=== PATIENT | male | born 1960 | race Hispanic/Latino ===

== ENCOUNTER 2017-02-24 10:36 | Outpatient (CLI) | payer MEDICARE ==
--- NOTE | 2017-02-24 11:51 | XRay Report ---
Left tibia-fibula 2 views: History: Fracture. Findings: There is no evidence of acute fracture diaphysis left tibia and fibula. No soft tissue calcification. Impression: No evidence of acute fracture.
--- NOTE | 2017-02-24 11:52 | XRay Report ---
Left hip 2 views: History: Fracture left femur and tibia and fibula. Findings: Mild arthritic changes in the superior-lateral aspect of hip joint. No evidence of acute fracture or dislocation. Focal areas of ossification adjacent to the greater trochanter probably related to old injury. Impression: No acute findings.
--- NOTE | 2017-02-24 11:55 | XRay Report ---
Left femur 2 views: History: Fracture left femur and tibia-fibula. Findings: There is old healed fracture noted mid-diaphysis of left femur with thickening of the cortex. No evidence of acute fracture. No significant soft tissue calcification. Impression: Old healed fracture diaphysis left femur.
== END 2017-02-24 10:37 | disposition home or self-care (01) ==
LOC: XRAY 10:36
PROVIDERS: ATTEND Family Medicine
DX: S72.8X2D Other fracture of left femur, subsequent encounter for closed fracture with routine healing (principal); M16.12 Unilateral primary osteoarthritis, left hip; F17.200 Nicotine dependence, unspecified, uncomplicated; X58.XXXD Exposure to other specified factors, subsequent encounter

== ENCOUNTER 2019-02-18 19:23 | Emergency (ER) | payer MEDICARE ==
[2019-02-18] MEDS ORDERED: ZOFRAN IV ONE ×2 (20:31→21:40)
[2019-02-18] MEDS ORDERED: SUBLIMAZE IV ONE ×2 (20:31→21:40)
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
--- NOTE | 2019-02-18 21:37 | Cat Scan Report ---
CT CERVICAL SPINE WITHOUT CONTRAST INDICATION: pain after fall down stairs. TECHNIQUE: All CT scans at this location are performed using CT dose reduction for ALARA by means of automated e xposure control. Axial CT images were obtained through the cervical spine. Sagittal and coronal reformatted images we re produced. COMPARISON: None available. FINDINGS: Fracture: None. Subluxation: None. Spinal canal: No significant compromise. Disc spaces: Moderate discogenic degenerative disease C3-4 C6-7. Facet joints: Moderate facet degenerative disease C4-5. Paraspinal soft tissues: No soft tissue swelling. Normal. Additional findings: None. Lung apices: Normal. IMPRESSION: 1. No fracture of cervical spine. 2. Moderate discogenic and facet degenerative disease. Signer Name: Musa Garcia MD Signed: 02/18/2019 9:33 PM Workstation Name: [id number]
--- NOTE | 2019-02-18 21:41 | Cat Scan Report ---
CT head/brain wo con INDICATION: pain after fall down stairs. TECHNIQUE: All CT scans at this location are performed using the following dose modulation technique: Automated exposure control. COMPARISON: None available. FINDINGS: There is no hemorrhage, abnormal extra-axial fluid collection, midline shift or mass effect. The vent ricles, cisterns and sulci are normal in size and configuration. Visualized paranasal sinuses and mas toid air cells are well-aerated. There is no fracture of the calvarium or scalp hematoma IMPRESSION: 1. No intracranial bleed. Signer Name: Musa Garcia MD Signed: 02/18/2019 9:37 PM Workstation Name: [id number]
--- NOTE | 2019-02-18 22:12 | XRay Report ---
SACRUM AND COCCYX 3 VIEWS INDICATION / CLINICAL INFORMATION: pain after fall down stairs. COMPARISON: None available. FINDINGS: No fracture or dislocation is seen within the sacrum or coccyx. Both SI joints appear intact. Signer Name: Musa Garcia MD Signed: 02/18/2019 10:08 PM Workstation Name: [id number]
--- NOTE | 2019-02-18 22:15 | XRay Report ---
LEFT KNEE 3 VIEWS INDICATION / CLINICAL INFORMATION: pain after fall down stairs. COMPARISON: None FINDINGS: Haroon are seen within the medial and lateral proximal tibia from previous fracture ORIF. No acute f racture, dislocation or left knee effusion is present. Moderate chondrocalcinosis is seen within both menisci with moderate degenerative arthrosis of medial femoral tibial compartment and mild degenerat [place] arthrosis of patellofemoral and lateral femoral tibial compartments on these nonweightbearing vie ws. Signer Name: Musa Garcia MD Signed: 02/18/2019 10:10 PM Workstation Name: [id number]
--- NOTE | 2019-02-18 22:19 | XRay Report ---
LUMBAR SPINE 3 VIEWS INDICATION / CLINICAL INFORMATION: pain after fall down stairs. COMPARISON: None available. FINDINGS: VERTEBRAE: No fracture. No significant malalignment. DISC SPACES:Moderate discogenic degenerative disease L4-5. Mild discogenic degenerative disease L3-4. FACET JOINTS:Moderate facet degenerative disease L5-S1 ADDITIONAL FINDINGS: None. Signer Name: Musa Garcia MD Signed: 02/18/2019 10:14 PM Workstation Name: [id number]
[2019-02-18 23:04] VITALS: BP 115/78
== END 2019-02-18 22:55 | disposition home or self-care (01) ==
LOC: ED 19:23
DX: S16.1XXA Strain of muscle, fascia and tendon at neck level, initial encounter (principal); S39.012A Strain of muscle, fascia and tendon of lower back, initial encounter; S30.0XXA Contusion of lower back and pelvis, initial encounter; S09.90XA Unspecified injury of head, initial encounter; J44.9 Chronic obstructive pulmonary disease, unspecified; H40.9 Unspecified glaucoma; F17.200 Nicotine dependence, unspecified, uncomplicated; Z96.659 Presence of unspecified artificial knee joint; Z79.899 Other long term (current) drug therapy; W10.8XXA Fall (on) (from) other stairs and steps, initial encounter; Y93.01 Activity, walking, marching and hiking; Y92.89 Other specified places as the place of occurrence of the external cause; Y99.8 Other external cause status
CPT/HCPCS: 70450; 72100; 72125; 72220; 73562; 96374; 96375; 99284; J2405; J3010